=== PATIENT | female | born 1995 | race Hispanic/Latino ===

== ENCOUNTER 2018-05-08 00:49 | Observation (INO) | payer MEDICAID ==
[~2018-05-08] VITALS: Ht 160 cm; Wt 140.8 kg
[2018-05-08 01:23] LABS: APPEARANCE,URINE CLEAR (CLEAR); BILIRUBIN,URINE Negative (NEGATIVE); COLOR,URINE Yellow (YELLOW); GLUCOSE, URINE (UA) Negative (NEGATIVE); KETONES,URINE Negative (NEGATIVE); LEUKOCYTE ESTERASE ,URINE Negative (NEGATIVE); NITRATE,URINE Negative (NEGATIVE); OCCULT BLOOD,URINE Negative (NEGATIVE); PROTEIN,URINE Negative (NEGATIVE)
[2018-05-08 01:38] LABS: BASOPHILS % (AUTO) 0.4 % (0.0-5.0); EOSINOPHILS % (AUTO) 0.2 % (0.0-8.0); HEMATOCRIT 41.3 % (36-48); LYMPHOCYTES % (AUTO) 9.1 % (21.0-51.0); MEAN CORPUSCULAR HEMOGLOBIN 26.5 pg (27.0-33.0); MEAN CORPUSCULAR HGB CONC 33.4 g/dL (32.0-36.0); MEAN CORPUSCULAR VOLUME 79.5 fL (79-99); MONOCYTES % (AUTO) 4.7 % (3.0-13.0); NEUTROPHILS % (AUTO) 85.6 % (40.0-77.0); PLATELET COUNT (AUTO) 256 K/uL (130-400); RED BLOOD CELL COUNT(AUTO) 5.19 MIL/uL (4.00-5.50); RED CELL DISTRIBUTION WIDTH 14.8 % (11.0-15.5); WHITE BLOOD COUNT (AUTO) 17.2 K/uL (4.8-10.8)
[2018-05-08 01:46] LABS: CREATININE 0.7 mg/dL (0.5-1.5); POTASSIUM 3.7 mmol/L (3.5-5.1)
[2018-05-08 01:51] LABS: ALBUMIN 3.5 g/dL (3.5-5.0); BILIRUBIN,TOTAL 0.4 mg/dL (0.2-1.0); TOTAL PROTEIN, SERUM 7.4 g/dL (6.0-8.3)
[2018-05-08] MEDS ORDERED: MORPHINE SULFATE 2 MG/ML 1ML SYG ONE (02:00)
[2018-05-08] MEDS ORDERED: FAMOTIDINE/PF 20 MG/2 ML VIAL IV ONE (02:01)
[2018-05-08] MEDS ORDERED: IOHEXOL-350 75 ML VIAL IV ONE (02:46)
[2018-05-08] MEDS ORDERED: ACETAMINOPHEN 325 MG TAB PO PRN (07:15)
[2018-05-08] MEDS ORDERED: KETOROLAC TROMETHAMINE 30MG/ML IV PRN (07:15)
[2018-05-08 07:55] VITALS: BP 138/70
[2018-05-08] MEDS: SODIUM CHLORIDE 0.9% 1000ML 1,000 ML IV SCH ×2 (10:56→22:43)
[2018-05-08 11:00] VITALS: BP 142/66
[2018-05-08 16:00] VITALS: BP 147/61
[2018-05-08] MEDS: LEVOFLOXACIN 500 MG/D5W 100 ML 100 ML IV SCH (18:18)
[2018-05-08 20:10] VITALS: BP 127/57
[2018-05-08] MEDS: METRONIDAZOLE 500MG/100ML BAG 100 ML IV SCH (22:29)
[2018-05-08 23:55] VITALS: BP 110/53
[2018-05-09 03:55] VITALS: BP 107/62
[2018-05-09 05:34] LABS: MEAN CORPUSCULAR HEMOGLOBIN 26.8 pg (27.0-33.0); MEAN CORPUSCULAR HGB CONC 33.1 g/dL (32.0-36.0); MEAN CORPUSCULAR VOLUME 80.8 fL (79-99); NUCLEATED RED BLOOD CELLS 0.1 % (0.0-0.19); PLATELET COUNT (AUTO) 223 K/uL (130-400); RED BLOOD CELL COUNT(AUTO) 4.82 MIL/uL (4.00-5.50); RED CELL DISTRIBUTION WIDTH 14.8 % (11.0-15.5); WHITE BLOOD COUNT (AUTO) 8.9 K/uL (4.8-10.8)
[2018-05-09 05:42] LABS: CREATININE 0.5 mg/dL (0.5-1.5); POTASSIUM 3.7 mmol/L (3.5-5.1)
[2018-05-09] MEDS: METRONIDAZOLE 500MG/100ML BAG 100 ML IV SCH ×3 (06:35→21:46)
[2018-05-09 07:30] VITALS: BP 120/57
[2018-05-09] MEDS: PANTOPRAZOLE SODIUM 40 MG TABLET.DR PO SCH (09:00)
[2018-05-09] MEDS: SODIUM CHLORIDE 0.9% 1000ML 1,000 ML IV SCH ×2 (09:55→14:35)
[2018-05-09] MEDS: ENOXAPARIN SODIUM 40 MG/0.4 ML SYRINGE SQ SCH (10:05)
[2018-05-09 11:00] VITALS: BP 118/59
[2018-05-09 17:00] VITALS: BP 133/64
[2018-05-09 19:00] VITALS: BP 136/71
[2018-05-09] MEDS: LEVOFLOXACIN 500 MG/D5W 100 ML 100 ML IV SCH (20:05)
[2018-05-10] VITALS: BP 133/63
[2018-05-10 04:00] VITALS: BP 104/52
[2018-05-10] MEDS: METRONIDAZOLE 500MG/100ML BAG 100 ML IV SCH ×2 (05:32→14:41)
[2018-05-10 08:34] VITALS: BP 107/58
[2018-05-10] MEDS: PANTOPRAZOLE SODIUM 40 MG TABLET.DR PO SCH (08:59)
[2018-05-10] MEDS: ENOXAPARIN SODIUM 40 MG/0.4 ML SYRINGE SQ SCH (09:00)
[2018-05-10 11:56] VITALS: BP 120/68
[2018-05-10] MEDS ORDERED: PANT40TA PO (15:14)
[2018-05-10] MEDS ORDERED: LEVO500T2 PO (15:14)
== END 2018-05-10 17:55 | disposition home or self-care (01) ==
LOC: EDH 00:49 → EDHIP 00:50 → 3DH 07:50
PROVIDERS: ADMIT Family Medicine; ATTEND Family Medicine
DX: K52.9 Noninfective gastroenteritis and colitis, unspecified (principal); G80.9 Cerebral palsy, unspecified; E66.01 Morbid (severe) obesity due to excess calories; Z83.3 Family history of diabetes mellitus; Z99.3 Dependence on wheelchair; Z88.0 Allergy status to penicillin; Z79.899 Other long term (current) drug therapy
CPT/HCPCS: 36415 ×2; 71045; 74177; 76700; 78227; 80048; 80053; 81003; 81025; 83690; 83735; 84484; 85025; 85027; 85378; 87507; 93005; 96361; 96365; 96366 ×2; 96367; 96372 ×2; 96375; 99285; A9537; G0378 ×65; J1650 ×2; J1885; J1956 ×2; J3490 ×7; J7030; Q9967

== ENCOUNTER 2018-12-07 16:08 | Inpatient (IN) | payer MEDICAID | END 2018-12-09 17:46 | disposition home or self-care (01) | LOC: EDH 16:08 → EDHIP 16:09 → 4BH 19:17 | DX: N61.1 Abscess of the breast and nipple (principal) ==

== ENCOUNTER 2019-05-23 05:45 | Day surgery (SDC) | payer MEDICAID ==
[~2019-05-23] VITALS: Ht 162.6 cm; Wt 137.4 kg
[~2019-05-23 05:45] MED LIST: ALBU8.5H8 IH; CHOL500050 PO; DULO30CA52 PO; METF-444 PO; NORG1TAB14 PO; SODIUM CHLORIDE 0.9% 1000ML 1,000 ML IV ONE
[2019-05-23 08:05] VITALS: BP 126/66
[2019-05-23] MEDS ORDERED: PROPOFOL 1000 MG/100 ML 100 ML IV ONE (10:02)
[2019-05-23 10:17] VITALS: BP 114/61
[2019-05-23 10:22] VITALS: BP 130/55
[2019-05-23 10:27] VITALS: BP 128/55
[2019-05-23 10:32] VITALS: BP 119/55
[2019-05-23 10:37] VITALS: BP 118/56
--- NOTE | 2019-05-23 10:40 | NUR ---
DC PT DC HOME VIA WC,NO DISTRESS NOTED ACCOMPANIED BY FATHER, PT DENIES ANY PAIN OR DISCOMFORTS
== END 2019-05-23 10:40 | disposition home or self-care (01) ==
LOC: ENDO 05:45 → DAH 05:45 → ENDO 10:40
PROVIDERS: ATTEND Internal Medicine
DX: K57.30 Diverticulosis of large intestine without perforation or abscess without bleeding (principal); K29.50 Unspecified chronic gastritis without bleeding; K64.0 First degree hemorrhoids; R12 Heartburn; K31.89 Other diseases of stomach and duodenum; K92.1 Melena; K22.8 Other specified diseases of esophagus; J45.909 Unspecified asthma, uncomplicated; E66.01 Morbid (severe) obesity due to excess calories; Z79.84 Long term (current) use of oral hypoglycemic drugs; Z79.899 Other long term (current) drug therapy; F41.9 Anxiety disorder, unspecified; F32.9 Major depressive disorder, single episode, unspecified; Z90.09 Acquired absence of other part of head and neck
CPT/HCPCS: 36415; 43239; 45380; 82948 ×2; 84703; 88305; A4606; J2704; J7030

== ENCOUNTER 2019-07-30 12:13 | Emergency (ER) | payer MEDICAID ==
[~2019-07-30 12:13] MED LIST changes: -SODIUM CHLORIDE 0.9% 1000ML 1,000 ML IV ONE
== END 2019-07-30 12:53 | disposition home or self-care (01) ==
LOC: EDH 12:13
DX: N75.0 Cyst of Bartholin's gland (principal); F32.9 Major depressive disorder, single episode, unspecified; Z88.0 Allergy status to penicillin; Z88.1 Allergy status to other antibiotic agents; Z88.5 Allergy status to narcotic agent

== ENCOUNTER → 2024-06-27 | Outpatient (CLI) | payer MEDICAID | END | disposition home or self-care (01) | LOC: RAH 09:28 | PROVIDERS: ATTEND Internal Medicine | DX: K21.9 Gastro-esophageal reflux disease without esophagitis (principal); R12 Heartburn | CPT/HCPCS: 74240 ==